=== PATIENT | female | born 2005 ===

== ENCOUNTER 2024-11-07 01:30 | Outpatient (CLI) | payer OTHER, SELFPAY ==
[2024-11-07 15:58] LABS: Abs Immature Grans 0.02 10^3/uL (0.0-0.06); HCT 38.0 % (36.0-46.0); HGB 13.4 g/dL (11.2-15.7); Immature Grans % 0.4 %; MCH 28.3 pg (27.0-33.0); MCHC 35.3 % (32.0-36.0); MCV 80 fL (80-95); MPV 11.0 fL (8.0-11.0); Platelet Count 226 10^3/uL (130-400); RBC 4.73 10^6/uL (3.93-5.22); RDW 11.6 % (11.7-14.6); RDW-SD 33.8 fL; WBC 5.07 10^3/uL (4.4-10.8)
== END 2024-11-07 01:31 | disposition home or self-care (01) ==
LOC: LBO 11-08 01:30
PROVIDERS: Visit Provider Obstetrics & Gynecology
DX: Z01.818 Encounter for other preprocedural examination (principal)
CPT/HCPCS: 36415; 86850; 86900; 86901; 85025

== ENCOUNTER 2024-11-08 06:14 | Day surgery (SDC) | payer OTHER, SELFPAY ==
[2024-11-08 06:30] VITALS: BP 115/71; PULSE 63; RESP 16; TEMP 36.7; O2SAT 98
[2024-11-08] MEDS: Lactated Ringers 1,000 ML 125 ML IV (07:00)
--- NOTE | 2024-11-08 07:01 | W.ANESPRE ---
General Info Date of Service Date Performed: 11/08/24 Height: 5 ft 5 in Weight: 57.6 kg Body Mass Index (BMI): 21.1 Surgical Procedure: Operation Date: 11/08/24 07:40 Proposed Procedure Side Surgeon p Insertion of IUD-Mirena/ Pap Smear Tanisha Ferguson DO Meds Allergies and Home Medications Allergies Allergy/AdvReac Type Severity Reaction Status Date / Time No Known Allergies Allergy Verified 11/08/24 06:43 Home Medication ?Medication ?Instructions ?Recorded medroxyprogesterone 150 mg/mL 150 mg IM ONCE 11/06/24 intramuscular suspension Current Visit Medications: Current Medications Generic Name Dose Route Start Last Admin Trade Name Freq PRN Reason Stop Dose Admin Ringer's Solution 1,000 mls @ 125 mls/hr 11/08/24 06:00 IV 11/08/24 23:59 INFUSION STEPHON IV Miscellaneous Supplies 1 each 11/08/24 06:00 Iv Access IV 11/08/24 23:59 DIRECTED STEPHON Sodium Chloride 0 ml 11/08/24 06:00 Normal Saline Flush 10 Ml Syr IV 11/08/24 23:59 PRN PRN Sodium Chloride 0 ml 11/08/24 06:00 Normal Saline 10 Ml Vial IJ 11/08/24 23:59 DIRECTED PRN Sterile Water 0 ml 11/08/24 06:00 Water,Injection,Sterile 10 Ml Vial IJ 11/08/24 23:59 DIRECTED PRN [facility] Medical History Medical History No pertinent past medical history Medical History Comments:: Max daily Tobacco Smoking/Tobacco Use Status: Never Alcohol Alcohol Intake: never Substance Use Substance use: Daily Substance use type: marijuana Vital Signs and Lab Results Vital Signs Most Recent Vital Signs in EMR: Most Recent Vital Signs Temp Pulse Resp BP Pulse Ox 36.7 C 63 16 115/71 98 11/08/24 06:30 11/08/24 06:30 11/08/24 06:30 11/08/24 06:30 11/08/24 06:30 Point of Care Results Point of Care Results: POC- Test(urine) Negative 11/08/24 06:55 Lab Results Blood Type / Crossmatch: Antibody Screen NEGATIVE 11/07/24 Complete Blood Count: WBC, (4.4-10.8) 5.07 10^3/uL 11/07/24, 15:44 RBC, (3.93-5.22) 4.73 10^6/uL 11/07/24, 15:44 Hgb, (11.2-15.7) 13.4 g/dL 11/07/24, 15:44 Hct, (36.0-46.0) 38.0 % 11/07/24, 15:44 Plt Count, (130-400) 226 10^3/uL 11/07/24, 15:44 Anesthesia Assessment and Plan Anesthesia History Personal History: No History of General Anesthesia Family History: No Family History of Anesthesia Complications Exercise Tolerance Exercise Tolerance: Metabolic Equivalents>4 Pertinent Negatives Pertinent Negatives: No Symptoms of GERD, No Major Cardiovascular Symptoms or Complaints, No Major Pulmonary Symptoms or Complaints and No History of CVA/TIA Cardiac & Pulmonary Exam Cardiac Exam: Normal S1/S2 Heart Sounds Pulmonary Exam: Clear Bilateral Breath Sounds Implantable Cardiac Device Does patient have a Pacemaker or an ICD?: No Airway Exam Known Difficult Airway: No Mallampati Class: 1 Mouth Opening: Normal (> 3cm) Thyromental Distance: Greater than 3 cm Neck Range of Motion: Full ROM Neck Circumference: Normal Teeth Condition: Normal Dentition ASA Classification ASA Score: ASA 2 Emergency Case?: No NPO Status NPO Status: NPO Clears >2 hours, Solids >8 hours Status Status: Negative HCG Anesthesia Plan Resuscitation Status: Full Code Anesthesia Technique: General Anesthesia Airway Planned: Natural Airway Monitors Used: Standard Monitors
[2024-11-08 07:06] VITALS: BMI 21.1
--- NOTE | 2024-11-08 07:50 | PAPFT_PTH ---
PATIENT: Noe Navarro LOC: [facility] U#:[id number] AGE/SX: 19/F ROOM: RE11/08/[address]: Tanisha Ferguson DO : 2005 BED: DIS: 11/08/2024 SPEC #: [id number] RECD: 11/08/24 12:34 STATUS: BRINA REValerie #: [id number] KIARRA: 11/08/24 07:[address]: Tanisha Ferguson DEPT: [facility] Cytology RECD BY: Danuta Meyer Tissues: 1 - CX/ENDOCX FOR PAP SMEARS Procedures: PAP THIN PREP/[facility] Screening HPV DNA PROBE Comments: [id number] (HPV 16 & 18/45) (CHLAMYDIA/GC)
[2024-11-08] MEDS: Silver Nitrate Stick 1 EACH (08:03)
[2024-11-08 08:10] VITALS: BP 106/58; PULSE 71; RESP 18; TEMP 36.4; O2SAT 97
--- NOTE | 2024-11-08 08:18 | W.PM.OP ---
Operative Note Operative Note PRE-OP DIAGNOSIS: Contraceptive management POST-OP DIAGNOSIS: same PROCEDURE: Exam under anesthesia, Pap smear, placement of Mirena IUD SURGEON: Tanisha Ferguson ANESTHESIA TYPE: MAC Refer to Anesthesia Record ESTIMATED BLOOD LOSS: 5 PATHOLOGY: other (Pap smear) Implants: Mirena IUD [id number] expiration 11/22/2026 Indications: Contraceptive management Findings: Normal-appearing vulva and vagina. Normal-appearing cervix. Uterus midline and mobile. No adnexal masses. Sounds to 6 cm. Procedure Description: After full informed consent was obtained, patient was taken the operating suite with an IV running. She was placed in dorsal supine position and anesthesia administered. She was then placed in the modified dorsal lithotomy position. Speculum inserted into the vaginal vault and the cervical os identified. Pap smear was obtained in the usual fashion. The cervix was then cleansed with Betadine and grasped with a single-tooth tenaculum. The uterus sounded to 6 cm. Mirena system inserted through the cervical os to the fundus and deployed. Strings cut to 3 cm. Tenaculum removed. Right puncture site nonhemostatic. Hemostasis achieved with chemical cautery of silver nitrate. The speculum was removed and the patient returned to the dorsal supine position. She awoke from anesthesia without difficulty was taken to the same-day surgical area in stable condition. She did receive 1 dose of Toradol intraoperatively. EBL: 5 mL Complications: None apparent Findings: Normal-appearing cervix, uterus midline and mobile. No evidence of adnexal masses Pathology: Pap smear obtained Implants: Intrauterine device, Mirena, expiration 11/22/2026. Due for exchange 10/2032 Date of Procedure: 11/08/24
[2024-11-08 08:39] VITALS: BP 111/57; PULSE 54; RESP 16; TEMP 36.1; O2SAT 100
--- NOTE | 2024-11-08 08:41 | W.ANESPOSTOP ---
Postoperative Evaluation Date, Time and Location Date Performed: 11/08/24 Time Performed: 08:42 Patient Location: Day Surgery Unit Vital Signs Most Recent Imported Vital Signs: Most Recent Vital Signs Temp Pulse Resp BP Pulse Ox 36.4 C L 71 18 106/58 L 97 11/08/24 08:10 11/08/24 08:10 11/08/24 08:10 11/08/24 08:10 11/08/24 08:10 Pain Score Most Recent Pain Score: Most Recent Pain Score Pain Level 2 11/08/24 06:30 Assessment Mental Status: Awake (Alert & Oriented to Patient Baseline) Airway and Respiratory Function: Patent airway with normal (patient baseline) respiratory exam Cardiovascular Function: Hemodynamically Stable Hydration Status: Adequately Hydrated Nausea & Vomiting: No Nausea or Vomiting Pain: Pt. Denies Any Pain Peripheral Nerve Block: Patient did not receive a nerve block
[2024-11-09 13:18] LABS: Chlamydia Result Negative (Negative); GC Result Negative (Negative)
== END 2024-11-08 09:05 | disposition home or self-care (01) ==
PROVIDERS: Visit Provider Obstetrics & Gynecology
PROC: (CPT 58300; principal; 2024-11-08 07:30)
DX: Z30.430 Encounter for insertion of intrauterine contraceptive device (principal)
CPT/HCPCS: 58300; 81025; 87491; 87591; 88142; 87624; J1100; J1885; J2003; J2250; J2405; J2704